=== PATIENT | male | born 1945 | race African-American/Black ===

== ENCOUNTER 2016-11-08 12:46 | Day surgery (SDC) | payer MEDICARE ==
[2016-11-08 13:36] VITALS: BP 179/86; PULSE 47; RESP 16; TEMP 97; O2SAT 99
[2016-11-08 15:00] VITALS: BP 189/84; PULSE 45; RESP 16; TEMP 97.5; O2SAT 100
[2016-11-08 15:15] VITALS: BP 174/90; PULSE 48; RESP 16; O2SAT 100
[2016-11-08] MEDS ORDERED: LIDOCAINE HCL 1% PF 30 ML VIAL ONE (15:15)
[2016-11-08 15:30] VITALS: BP 177/77; PULSE 52; RESP 16; O2SAT 100
--- NOTE | 2016-11-08 16:41 | RADRPT ---
EXAM DATE/TIME: 11/08/2016 13:27 [place] COMPARISON: No previous studies available for comparison. INDICATIONS : Left lower quadrant transplant kidney. MEDICAL HISTORY : Hypertension. Diverticulosis. Arthritis. Renal failure. ESRD. Bradycardia. Lipoma. SURGICAL HISTORY : Bilateral kidney transplant. Left breast nodule removed. ENCOUNTER: Initial ACUITY: 1 day PAIN SCORE: 0/10 LOCATION: Left lower quadrant ORGAN: Left transplanted kidney SPECIMENS: Two core specimen(s) submitted for pathologic evaluation. DEVICE: 18 gauge Temno needle Post procedure scanning reveals no hematoma or other complication. The possibility does exist that the tissue obtained will be non-diagnostic. If the sample is non-lisa gnostic a repeat biopsy or surgical biopsy may need to be performed. TECHNIQUE: 1. Ultrasound guidance for needle biopsy. 2. Needle biopsy. The risks, benefits, and alternatives to ultrasound guided needle biopsy were explained to the patien t in detail including the risk of bleeding and infection. Written and verbal informed consent was ob tained. With the patient on the ultrasound table, images were obtained. Overlying skin was prepped and drape d in the usual sterile fashion and Lidocaine was utilized as a local anesthetic. A needle was advanced into the identified target and the number of specimens as above obtained and harrington bmitted for pathologic evaluation. The patient tolerated the procedure well and left the ultrasound suite in stable condition. CONCLUSION: Uncomplicated ultrasound guided needle biopsy. Wilder Sandoval MD on November 08, 2016 at 16:38 Board Certified Radiologist. This report was verified electronically.
== END 2016-11-08 15:40 | disposition home or self-care (01) ==
LOC: HRAD 12:46 → HRIP 12:51 → HRAD 15:40
PROVIDERS: ATTEND Internal Medicine Nephrology
DX: Z94.0 Kidney transplant status (principal); I12.0 Hypertensive chronic kidney disease with stage 5 chronic kidney disease or end stage renal disease; N17.9 Acute kidney failure, unspecified
CPT/HCPCS: 50200; 76942